=== PATIENT | female | born 1975 | race African-American/Black ===

== ENCOUNTER → 2017-09-03 | Day surgery (SDC) | payer MEDICARE, OTHER ==
[~2017-09-03] MED LIST: ACETAMINOPHEN 1000 MG/100 ML 100 ML IV ONE; BUPIVACAINE 0.5%/EPI 30 ML SDV INJ ONE; CEFAZOLIN SOD 2 GM/D5W 50ML 50 ML IV ONE; DEXAMETHASONE SOD PHOS INJ 4 MG/ML VIAL ONE; FENTANYL CITRATE/PF 100MCG/2 ML INJ ONE; KETOROLAC TROMETHAMINE 30 MG/ML VIAL ONE; LIDOCAINE HCL 2% LOCAL INJ 5 ML SDV VIAL INJ ONE; MIDAZOLAM HCL 2 MG/2 ML VIAL ONE; ONDANSETRON HCL INJ 2 MG/ML VIAL ONE; PROPOFOL IV EMULSION 10 MG/ML 20 ML VIAL ONE; PROZAC20 MG; SEVOFLURANE INHAL SOLN 250 ML PEN BTL ONE
--- NOTE | 2017-09-04 09:29 | Operative Report ---
DATE OF PROCEDURE: September 03, 2017 PREOPERATIVE DIAGNOSES 1. Left knee lateral meniscus tear. 2. Left knee degenerative joint disease of the knee. POSTOPERATIVE DIAGNOSES 1. Left knee lateral meniscus tear. 2. Left knee degenerative joint disease of the knee. OPERATIONS/PROCEDURES PERFORMED 1. The patient underwent a left examination under anesthesia. 2. Left knee arthroscopy. 3. Left knee partial lateral meniscectomy. 4. Left knee chondroplasty of the lateral femoral condyle and lateral tibial plateau. EXTENSION WORKER: None. ANESTHESIA: General endotracheal intubation anesthesia. IV FLUIDS: Per the anesthesia record. BRIEF DESCRIPTION OF THE PATIENT'S OPERATIVE PROCEDURE: Ms. Guadalupe was taken to the operating room and placed in the supine position on the operating table. Following induction of general anesthesia, as well as endotracheal intubation, the patient's left lower extremity was examined under anesthesia. She was found to have a mild effusion within the knee joint, but otherwise ligamentously stable knee. Her knee did, however, hyperextend approximately 20 degrees. The patient's lower extremity was prepped and draped in a standard surgical fashion. A 2-portal technique was used to provide this patient arthroscopic evaluation of the knee joint. Examination of the suprapatellar pouch, medial and lateral gutters found no evidence of loose bodies. There was no significant evidence of chondromalacia of the patellar or trochlear surfaces. The scope was advanced in the medial compartment. The medial meniscus was thoroughly probed and there was no evidence of a meniscus injury. There was no significant evidence of chondromalacia of the medial femoral condyle or medial tibial plateau. The scope was then advanced to the intercondylar notch, and the anterior and posterior cruciate ligaments were identified and found to be intact. The scope was advanced in the lateral compartment and there was a macerated tear of the lateral meniscus. 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 A combination of biting forceps and motorized shaver were used to resect the torn portion of the meniscus. Chondroplasties of the lateral femoral condyle and lateral tibial plateau were performed at this time. The knee was then deflated of its sterile normal saline. Each of the portal sites were closed using 4-0 nylon suture. The portal sites as well as knee itself were injected with 0.5% Marcaine with epinephrine. Sterile dressings were applied. The patient was awakened and taken to the postanesthesia care in stable condition. Job#: [id number]
== END | disposition home or self-care (01) ==
LOC: OR 08:51
PROVIDERS: ATTEND Specialist
DX: S83.262A Peripheral tear of lateral meniscus, current injury, left knee, initial encounter (principal); S83.222A Peripheral tear of medial meniscus, current injury, left knee, initial encounter; S83.412A Sprain of medial collateral ligament of left knee, initial encounter; M17.12 Unilateral primary osteoarthritis, left knee; M94.262 Chondromalacia, left knee; F84.0 Autistic disorder; F41.9 Anxiety disorder, unspecified; Z86.11 Personal history of tuberculosis
CPT/HCPCS: 29881; 81025; J1100; J1885; J2001; J2250; J2405